=== PATIENT | male | born 2000 | race Two or more races ===

== ENCOUNTER 2024-07-19 16:13 | Emergency (ER) | payer OTHER ==
[~2024-07-19] VITALS: Ht 177.8 cm; Wt 54.0 kg
[2024-07-19 17:53] LABS: HEMATOCRIT 42.5 % (39.0-48.0); HEMOGLOBIN 14.3 g/dL (13-16.00); MEAN CELL VOLUME 93.6 fL (80.0-100.00); MEAN CORPUSCULAR HEMOGLOBIN 31.6 pg (27.00-32.0); MEAN CORPUSCULAR HGB CONC 33.8 g/dl (32.0-36.0); PLATELET COUNT 216 K/uL (150-450); RED BLOOD COUNT 4.54 M/uL (4.00-6.00); RED CELL DISTRIBUTION WIDTH 12.8 % (11.5-14.5)
[2024-07-19 18:30] LABS: ALBUMIN 4.3 gm/dL (3.4-5.0); BILIRUBIN TOTAL 0.55 mg/dL (0.3-1.2); CALCIUM 9.4 mg/dL (8.5-10.1); CREATININE SERUM 0.92 mg/dL (0.70-1.30); GFR 101.95; GLOBULINA 4.1 G/DL (2.4-3.5); POTASSIUM 4.85 mEq/L (3.5-5.1); TOTAL PROTEIN 8.4 gm/dL (6.4-8.2)
[2024-07-19 18:30] LABS: PH,URINE 5.5 (5.0-8.0); URINE APPEARANCE Clear; URINE BILIRRUBIN Negative (NEGATIVE); URINE BLOOD Negative; URINE COLOR Yellow; URINE GLUCOSE Negative (NEGATIVE); URINE KETONE Negative (NEGATIVE); URINE LEUKOCYTE Negative; URINE NITRATE Negative; URINE PROTEIN Negative (NEGATIVE); URINE UROBILINOGEN 0.2 E.U./dl
[2024-07-19 18:32] LABS: URINE BACTERIA 4.8 uL (0.0-1933); URINE EPITHELIAL CELLS 4.5 uL (0.0-38.8); URINE RBC 8.9 uL (0.0-20.8); URINE WBC 6.4 uL (0.0-23.2)
[2024-07-19 18:39] LABS: URINE CAST 0.14 uL (0.0-1.40)
== END 2024-07-19 22:18 | disposition home or self-care (01) ==
LOC: ER 16:16
PROVIDERS: Preventive Medicine Public Health & General Preventive Medicine
DX: R10.9 Unspecified abdominal pain (principal); Z91.013 Allergy to seafood